=== PATIENT | female | born 1950 | race Caucasian/White ===

== ENCOUNTER → 2017-12-01 | Outpatient (CLI) | payer MEDICARE, OTHER ==
[~2017-12-01] MED LIST: CALC1TAB32 PO; CALC600T63 PO; CHOL100052 PO; CLOB15CR22 TP; ESTR0.62 PO; HYDR453.8 TP; MULT-820 PO; NAPR-1043 PO
--- NOTE | 2017-12-01 11:10 | RADIOLOGY IMAGING REPORT ---
FACILITY: [facility] - [place] PATIENT NAME: Eulalia Jurado : 1950 MR: [id number] V: [id number] EXAM DATE: ORDERING PHYSICIAN: GABBIE GRAY TECHNOLOGIST: Location: [facility] Patient: Eulalia Jurado : 1950 Visit/Account:[id number] Date of Sevice: 12/01/2017 DEXA Scan Clinical history: Osteopenia. Comparison: DEXA scan from 10/23/2016. LUMBAR SPINE: The bone mineral density (BMD) measured from L1-L4 correlates with a Z-score of 2 and a T-score of 0. 6 which is Normal as defined by the World Health Organization. The corresponding risk of fracture in the lumbar spine is Not increased compared with a young adult reference population. This value has increase by 5.3 % since the prior study. More than 5% change is considered significant. HIP: Bone mineral density (BMD) measured in the LEFT total hip region correlates with a Z-score 0.3 and a T-score of -0.8 which is normal as defined by the World Health Organization. The corresponding risk of fracture in the hip is 1-2 t imes increased compared to a young adult reference population. This value has increase by 5.3 % since the prior study. More than 5% change is considered significant. T score left femoral neck -0.7 Bone mineral density (BMD) measured in the Femoral Neck region measures 0.941 g/cm?. IMPRESSION: 1. Lumbar spine: Normal. There has been 5.3% increase in the bone mineral density since the previou s exam. 2. Left Total Hip: Normal. There has been 5.3% increase in the bone mineral density since the previ ous exam. 3. Femoral Neck: Bone Mineral Density is 0.941 g/cm? The next DEXA scan of this patient should include the following sites: L1-L4 and the left hip. FRAX? WHO Fracture Risk Assessment Tool link: <http://www.shef.ac.uk/FRAX/tool.jsp?locationValue=9> PLEASE NOTE: 1) The World Health Organization defines low BMD as follows: T-score Normal > -1 Osteopenia < -1 and > -2.5 Osteoporosis < -2.5 without fractures Established osteoporosis < -2.5 with fractures 2) In general, you may wish to consider: Diagnosis Treatment Follow-up DEXA Normal BMD Prevention 2-3 years Osteopenia Prevention/therapy 1-2 years Osteoporosis Therapy Yearly 3) Fracture risk estimated from the T-score is more accurate for vertebral fractures (often spontane ous) than for hip fractures. Report Dictated By: Laney Alva MD at 12/01/2017 10:52 AM Report E-Signed By: Laney Alva MD at 12/01/2017 11:06 AM WSN:[id number]
== END ==
LOC: RAD 09:57
PROVIDERS: ATTEND Obstetrics & Gynecology
DX: M85.852 Other specified disorders of bone density and structure, left thigh (principal); M85.9 Disorder of bone density and structure, unspecified
CPT/HCPCS: 77080

== ENCOUNTER → 2017-12-11 | Outpatient (CLI) | payer OTHER ==
[~2017-12-11] MED LIST changes: +CIPR-344 PO; +SULF-198 PO
== END ==
LOC: LAB 09:47
PROVIDERS: ATTEND Emergency Medicine
DX: R39.15 Urgency of urination (principal); B96.20 Unspecified Escherichia coli [E. coli] as the cause of diseases classified elsewhere
CPT/HCPCS: 81001; 87077; 87088; 87186

== ENCOUNTER → 2017-12-30 | Outpatient (CLI) | payer OTHER, MEDICARE ==
[~2017-12-30] MED LIST changes: +DIPH0.5D12 IM; +PNEU0.5D3 IM
== END ==
LOC: LAB 14:34
PROVIDERS: ATTEND Emergency Medicine
DX: Z72.89 Other problems related to lifestyle (principal)
CPT/HCPCS: 36415; 86803

== ENCOUNTER → 2018-01-16 | Day surgery (SDC) | payer MEDICARE, OTHER ==
[~2018-01-16] VITALS: Ht 165.1 cm; Wt 68.9 kg
[~2018-01-16] MED LIST changes: +LIDOCAINE MPF 1% 5 ML VIAL ONE; +LIDOCAINE/SOD BICARB 8.4% SYR ID ONE; +MIDAZOLAM 2 MG/2 ML VIAL IVP PRN; +NORMOSOL R SOLN(*) 1000 ML BAG 1,000 ML IV PRN; +PROPOFOL(*)1000 MG/100 ML VIAL 100 ML ONE
[2018-01-16 06:15] VITALS: BP 117/68
[2018-01-16 08:31] VITALS: BP 104/77
[2018-01-16 09:00] VITALS: BP 103/70
[2018-01-16 09:11] VITALS: BP 118/72
[2018-01-16 09:13] VITALS: BP 114/74
== END ==
LOC: OR 01:31
PROVIDERS: ATTEND Internal Medicine
DX: Z12.11 Encounter for screening for malignant neoplasm of colon (principal)
CPT/HCPCS: 00812; G0121; J2001; J2704

== ENCOUNTER → 2018-08-25 | Outpatient (CLI) | payer MEDICARE, OTHER ==
[~2018-08-25] MED LIST changes: +ESTR42.5; -LIDOCAINE MPF 1% 5 ML VIAL ONE; -LIDOCAINE/SOD BICARB 8.4% SYR ID ONE; -MIDAZOLAM 2 MG/2 ML VIAL IVP PRN; -NORMOSOL R SOLN(*) 1000 ML BAG 1,000 ML IV PRN; -PROPOFOL(*)1000 MG/100 ML VIAL 100 ML ONE
[2018-08-25 16:54] LABS: PLATELET COUNT, AUTOMATED 305 K/uL (150-450)
== END ==
LOC: LAB 16:16
PROVIDERS: ATTEND Emergency Medicine
DX: E83.119 Hemochromatosis, unspecified (principal); R41.3 Other amnesia
CPT/HCPCS: 36415; 82040; 82247; 82310; 82374; 82435; 82565; 82728; 82947; 83036; 84075; 84132; 84155; 84295; 84443; 84450; 84460; 84520; 85025; 86140

== ENCOUNTER → 2018-09-16 | Outpatient (CLI) | payer MEDICARE, OTHER ==
--- NOTE | 2018-09-16 14:35 | RADIOLOGY IMAGING REPORT ---
FAC[place]: [facility] [place]IENT NAME: Eulalia Jurado : 1950 MR: [id number] V: [id number] EXAM DATE: ORDERING PHYSICIAN: GLEN HANCOCK TECHNOLOGIST: Location: [facility] - [place] Patient: Eulalia Jurado : 1950 Visit/Account:[id number] Date of Sevice: 09/16/2018 BRAIN W W/O CONTRAST Comparisons: None. Additional pertinent history: Memory loss TECHNIQUE: Multiplanar, multisequence brain MRI was performed with and without gadolinium contrast. CONTRAST: 15 ml of MultiHance. FINDINGS: Sagittal midline structures and craniocervical junction: Negative. Midline shift: None. Ventricles: Negative. Brain parenchyma: Diffusion weighted imaging: Negative. Gradient sequence: Negative. T2 weighted FLAIR images: Negative. Extra-axial spaces: Negative. Dural venous sinuses and major arterial flow voids: Negative. Intracranial enhancement: Negative.. Mastoid air cells and paranasal sinuses: Mild mucosal thickening involving the maxillary sinuses. Pa tchy increased T2 signal involving the left mastoid air cells. Surrounding soft tissues and orbits: Negative. Impression: 1. Mild inflammatory changes involving the maxillary sinuses and left mastoid air cells. 2. No evidence of acute intracranial pathology. Report Dictated By: Hank Lau MD at 09/16/2018 2:25 PM Report E-Signed By: Hank Lau MD at 09/16/2018 2:31 PM WSN:[id number]
== END ==
LOC: MRI 01:00
PROVIDERS: ATTEND Emergency Medicine
DX: J32.9 Chronic sinusitis, unspecified (principal); R41.3 Other amnesia
CPT/HCPCS: 70553; A9577

== ENCOUNTER → 2018-11-24 | Outpatient (CLI) | payer MEDICARE, OTHER ==
--- NOTE | 2018-11-25 08:37 | RADIOLOGY IMAGING REPORT ---
FACILITY: [facility] PATIENT NAME: ISABEL MCPHERSON : [id number] MR: [id number] V: [id number] EXAM DATE: ORDERING PHYSICIAN: GABBIE GRAY TECHNOLOGIST: Galina Benton PROCEDURE:BILATERAL DIGITAL SCREENING MAMMOGRAM WITH CAD ASSISTED INTERPRETATION & 3D TOMOSYNTHESIS COMPARISON:Prior mammograms 10/03/17, 09/18/16, 09/08/15, 08/29/14, 07/13/13. INDICATIONS:SCREENING FINDINGS: Scattered fibroglandular densities are seen throughout the breasts. The parenchymal pattern has remained stable allowing for difference in mammographic technique & patient positioning. DIAGNOSTIC CATEGORY 1--NEGATIVE. RECOMMENDATIONS: ROUTINE MAMMOGRAM AND CLINICAL EVALUATION. IMPRESSION: BIRADS 1: Negative. No significant abnormality is seen. Dictated by: Laney Alva M.D. on 11/24/2018 at 16:55 Transcribed by: SANJUANITA on 11/25/2018 at 8:02 Approved by: Laney Alva M.D. on 11/25/2018 at 8:36 [facility]
== END ==
LOC: MAMO 01:26
PROVIDERS: ATTEND Obstetrics & Gynecology
DX: Z12.31 Encounter for screening mammogram for malignant neoplasm of breast (principal)
CPT/HCPCS: 77063; 77067

== ENCOUNTER 2019-03-17 12:47 | Outpatient (RCR) | payer MEDICARE, OTHER ==
[~2019-03-17 12:47] MED LIST changes: -DIPH0.5D12 IM; +DIPH0.5S2 IM; +PNEI IM; +SERT25TA87 PO; +VARI50KI IM
[2019-03-17 12:56] VITALS: BP 122/81
[2019-03-17 13:41] VITALS: BP 119/76
== END 2019-05-03 11:39 | disposition home or self-care (01) ==
LOC: SPU 12:47
PROVIDERS: ATTEND Emergency Medicine
DX: E83.119 Hemochromatosis, unspecified (principal)
CPT/HCPCS: 99195

== ENCOUNTER → 2019-03-18 | Outpatient (CLI) | payer MEDICARE, OTHER | LOC: LAB 13:50 | PROVIDERS: ATTEND Surgery | DX: C44.612 Basal cell carcinoma of skin of right upper limb, including shoulder (principal); L98.9 Disorder of the skin and subcutaneous tissue, unspecified | CPT/HCPCS: 88305 ==